=== PATIENT | female | born 2000 | race Caucasian/White ===

== ENCOUNTER 2018-06-18 21:13 | Emergency (ER) | payer BC ==
[2018-06-18 21:38] VITALS: BP 107/70
[2018-06-18] MEDS ORDERED: Lidocaine 1%* 5 ML VIAL INJ ONE (21:57)
--- NOTE | 2018-06-18 22:07 | UC ---
General HPI - HPI Summary HPI Summary: pt c/o L great toenail being ripped off from being stepped on at 7:30pm. states the nail is always deformed from a prior injury and sticks up but was not off. tetanus shot is UTD. - History of Current Complaint Chief Complaint: Lori Stated Complaint: LEFT BIG TOE NAIL ISSUE Time Seen by Provider: 06/18/18 21:56 Hx Obtained From: Patient Hx Last Menstrual Period: 06/06/18 on BCP Onset/Duration: Sudden Onset Timing: Constant Pain Intensity: 5 Associated Signs & Symptoms: Negative: Edema, Fever - Allergy/Home Medications Allergies/Adverse Reactions: Allergies Allergy/AdvReac Type Severity Reaction Status Date / Time No Known Allergies Allergy Verified 06/18/18 21:38 Home Medications: Home Medications Bcp 1 tab DAILY 06/18/18 [History Confirmed 06/18/18] PMH/Surg Hx/FS Hx/Imm Hx Previously Healthy: Yes - Surgical History Surgical History: None - Family History Known Family History: Positive: Non-Contributory - Social History Occupation: Student Alcohol Use: None Substance Use Type: None Smoking Status (MU): Never Smoked Tobacco - Immunization History Hx Tetanus, Diphtheria Vaccination: Yes Vaccination Up to Date: Yes Review of Systems All Other Systems Reviewed And Are Negative: No Constitutional: Negative: Fever Motor: Negative: Decreased ROM, Weakness Musculoskeletal: Negative: Edema Physical Exam Triage Information Reviewed: Yes Appearance: Well-Appearing Vital Signs: Initial Vital Signs Temp 98.2 F 06/18/18 21:33 Pulse 65 06/18/18 21:33 Resp 16 06/18/18 21:33 BP 107/70 06/18/18 21:33 Pulse Ox 100 06/18/18 21:33 Vital Signs Reviewed: Yes Eyes: Positive: Conjunctiva Clear Respiratory: Positive: No respiratory distress Cardiovascular: Positive: RRR Musculoskeletal: Positive: Other: - L foot: great toenail is avulsed all the way to the base. the nail is cracked as well. area around the nail has dried blood and is tender. rest of foot is non tender. foot has gross s/v/m function. Neurological: Positive: Alert Psychological: Positive: Age Appropriate Behavior Skin Exam: Normal Course/Dx - Course Course Of Treatment: pt advised of possible fx given hx of injury. xray encouraged; however, pt refused. i advised of risk for missed fx but she still refused citing no bone pain. PROCEDURE: time out done. toe prep betadine. digit blocked with 3ml of 1% lidocaine. spoon used to dissect what little proximal tissue attachment remained. site then irrigated with sterile water. 4 tiny bleeders where cauterized with a silver nitrate stick. layer of Bacitracin applied then dressing by nursing. toe had gross v/m function after. pt tolerated well. pt advised nail may not regenerate. - Diagnoses Provider Diagnosis: Toenail avulsion Discharge - Sign-Out/Discharge Documenting (check all that apply): Patient Departure All imaging exams completed and their final reports reviewed: No Studies - Discharge Plan Condition: Stable Disposition: HOME Patient Education Materials: Nail Avulsion (ED) Referrals: TANISHA WELDON [, APPLICATION, OTHER] - 5 Days - Billing Disposition and Condition Condition: STABLE Disposition: Home
[2018-06-18] MEDS ORDERED: Silver Nitrate/Potassium Nitr* 1 EA STICK ONE (22:25)
[2018-06-18] MEDS ORDERED: Silver Nitrate/Potassium Nitr* 1 EA STICK TOPICAL ONE (22:32)
== END 2018-06-18 22:41 | disposition home or self-care (01) ==
LOC: UCCORT 21:13
DX: S91.202A Unspecified open wound of left great toe with damage to nail, initial encounter (principal); W50.0XXA Accidental hit or strike by another person, initial encounter; Y92.9 Unspecified place or not applicable
CPT/HCPCS: 11730; 99212; A9270-GY; G0463